=== PATIENT | female | born 1990 | race Hispanic/Latino ===

== ENCOUNTER 2018-06-27 18:47 | Emergency (ER) | payer SELFPAY ==
[~2018-06-27] VITALS: Ht 152.4 cm; Wt 88.5 kg
[2018-06-27] MEDS ORDERED: NAPROXEN250 MG PO (20:35)
== END 2018-06-27 20:37 | disposition home or self-care (01) ==
LOC: ER 18:47
DX: M79.661 Pain in right lower leg (principal); M79.89 Other specified soft tissue disorders
CPT/HCPCS: 93971; 99283

== ENCOUNTER 2018-08-29 23:02 | Emergency (ER) | payer SELFPAY ==
[~2018-08-29] VITALS: Ht 152.4 cm; Wt 88.5 kg
[~2018-08-29 23:02] MED LIST: NAPROXEN250 MG PO
[2018-08-30 01:15] LABS: BILIRUBIN,URINE NEGATIVE (NEGATIVE); CLARITY,URINE SL CLOUDY (CLEAR); COLOR,URINE YELLOW (YELLOW); KETONES,URINE NEGATIVE (NEGATIVE); LEUKOCYTE ESTERASE ,URINE NEGATIVE (NEGATIVE); NITRITE,URINE NEGATIVE (NEGATIVE); PROTEIN,URINE DIPSTICK NEGATIVE (NEGATIVE); URINE UROBILINOGEN 0.2 mg/dL (0.2 - 1); WBC,URINE (MAN) 0-5 /HPF (0-5)
[2018-08-30 01:16] LABS: BACTERIA,URINE FEW /HPF; CALCIUM OXALATE CRYSTALS,UR MANY (FEW); EPITHELIAL CELLS,URINE FEW /LPF; MUCUS,URINE FEW (RARE); RBC,URINE 0-5 /HPF (0-5)
== END 2018-08-30 02:30 | disposition left against medical advice (07) ==
LOC: ER 23:02
DX: R10.9 Unspecified abdominal pain (principal)
CPT/HCPCS: 81001; 81025

== ENCOUNTER → 2020-12-20 | Outpatient (CLI) | payer BC | LOC: MAMMO 10:41 | PROVIDERS: ATTEND Obstetrics & Gynecology | DX: N63.20 Unspecified lump in the left breast, unspecified quadrant (principal) | CPT/HCPCS: 77066 ==